=== PATIENT | female | born 1995 | race Hispanic/Latino ===

== ENCOUNTER 2020-05-04 10:00 | Emergency (ER) | payer OTHER ==
[~2020-05-04] VITALS: Ht 165.1 cm; Wt 141.2 kg
[2020-05-04] MEDS ORDERED: ONDANSETRON ODT8 MG PO (10:58)
[2020-05-04] MEDS ORDERED: LOMOTIL TABLET1 EACH PO (10:58)
[2020-05-04] MEDS ORDERED: PREDNISONE20 MG PO (10:58)
[2020-05-04] MEDS ORDERED: PROAIR HFA INH8.5 GM PO (10:58)
[2020-05-04] MEDS ORDERED: LEVAQUIN750 MG PO (10:58)
--- NOTE | 2020-05-04 10:58 | Emergency Department Note ---
History of Present Illnes History of Present Illness Chief Complaint: dry cough/wheezing History of Present Illness This is a 24 year old female. was doing well until 1 day ago then diarrhea, dry cough, wheezing. no sob Historian: Patient History limited by: condition of the patient Supply Aide Required: No Onset (how long ago): day(s) (1) Location: n/a Quality: n/a Radiation: Denies non-radiation Severity: mild Onset quality: gradual Duration (how long): day(s) (1) Timing of current episode: intermittent Progression: unchanged Chronicity: new Context: Denies recent illness, Denies recent surgery, Denies recent immobilization, Denies recent travel, Denies trauma/injury, Denies new medications, Denies hx of DVT/PE Relieving factors: none Exacerbating factors: none Associated symptoms: Reports cough Treatments prior to arrival: none Past Medical/Family History Physician Review I have reviewed the patient's past medical and family history. Any updates have been documented here. Past Medical History Recent Fever: No Clinical Suspicion of Infectio: No New/Unexplained Change in Ment: No Other Medical History: reactive airway disease Past Surgical History: None Social History Smoking Cessation: Never Smoker Counseling Performed: No Alcohol Use: Social Any Illegal Drug Use: No TB Exposure/Symptoms: No Physically hurt or threatened: No Family History Family history of heart diseas: No Other Any Pre-Existing Lines (PICC,: No Is patient up to date on immun: No Review of Systems Review of Systems Constitutional: Reports no symptoms EENTM: Reports no symptoms Cardiovascular: Reports no symptoms Respiratory: Reports as per HPI, Reports cough, Reports wheezing Gastrointestinal: Reports as per HPI, Reports diarrhea Genitourinary: Reports no symptoms Musculoskeletal: Reports no symptoms Integumentary: Reports no symptoms Neurological: Reports no symptoms Psychological: Reports no symptoms Endocrine: Reports no symptoms Hematological/Lymphatic: Reports no symptoms Review of other systems: All other systems negative Physical Exam Related Data Allergies: Coded Allergies: lamotrigine (Verified Allergy, Intermediate, rash/hives, 05/04/20) lithium (Verified Allergy, Intermediate, rash/hives, 05/04/20) Vital signs reviewed: Yes Physical Exam CONSTITUTIONAL Constitutional: Present well-developed, Present well-nourished HENT HENT: Present normocephalic, Present atraumatic, Present oropharynx clear/moist, Present nose normal HENT L/R: Present left ext ear normal, Present right ext ear normal EYES Eyes: Reports PERRL, Reports conjunctivae normal NECK Neck: Present ROM normal, Present supple PULMONARY Pulmonary: Present effort normal, Present other (+wheezing) CARDIOVASCULAR Cardiovascular: Present regular rhythm, Present heart sounds normal, Present capillary refill normal, Present normal rate GASTROINTESTINAL Abdominal: Present soft, Present nontender, Present bowel sounds normal GENITOURINARY Genitourinary: Present exam deferred SKIN Skin: Present warm, Present dry MUSCULOSKELETAL Musculoskeletal: Present ROM normal NEUROLOGICAL Neurological: Present alert, Present oriented x 3, Present no gross motor or sensory deficits PSYCHOLOGICAL Psychological: Present mood/affect normal, Present judgement normal Assessment & Plan Medical Decision Making MDM rad/bronchitis/diarrhea Assessment & Plan Final Impression: (1) Reactive airway disease (2) Acute bronchitis (3) Diarrhea Depart Disposition: HOME, SELF-group home Meds Active Scripts Prednisone (PREDNISONE) 20 Mg Tab, 60 MG PO DAILY, #18 TAB Prov:FLAKO ARELLANO 05/04/20 Albuterol Sulf* (PROAIR HFA INHALER*) 8.5 Gm Inh, 2 INH PO Q4HR PRN for COUGH, #1 INH prn cough, wheezing, shortness of breath. USE SPACER Prov:FLAKO ARELLANO 05/04/20 Levofloxacin (LEVAQUIN) 750 Mg Tablet, 750 MG PO DAILY, #10 TAB Prov:FLAKO ARELLANO 05/04/20 Diphenoxylate Hcl/Atropine (LOMOTIL TABLET) 1 Each Tablet, 2 TAB PO Q6HR PRN for DIARRHEA, #24 TAB Prov:FLAKO ARELLANO 05/04/20 Ondansetron (ONDANSETRON ODT) 8 Mg Tab.rapdis, 4 MG PO Q4HR PRN for NAUSEA AND VOMITING, #20 TAB 1 Refill Prov:FLAKO ARELLANO 05/04/20 FLAKO ARELLANO May 04, 2020 10:58
== END 2020-05-04 11:12 | disposition home or self-care (01) ==
LOC: FSED 10:00
DX: R05 Cough (principal); J20.9 Acute bronchitis, unspecified; J45.909 Unspecified asthma, uncomplicated; R19.7 Diarrhea, unspecified
CPT/HCPCS: 81003; 81025; 99283

== ENCOUNTER 2020-05-09 23:38 | Emergency (ER) | payer OTHER ==
[~2020-05-09] VITALS: Ht 165.1 cm; Wt 127.0 kg
[~2020-05-09 23:38] MED LIST: LEVAQUIN750 MG PO; LOMOTIL TABLET1 EACH PO; ONDANSETRON ODT8 MG PO; PREDNISONE20 MG PO; PROAIR HFA INH8.5 GM PO
--- NOTE | 2020-05-10 00:01 | Emergency Department Note ---
History of Present Illnes History of Present Illness Chief Complaint: Respiratory History of Present Illness This is a 24 year old female . Arrival Mode: Car Orthopaedic Nurse Required: No Onset (how long ago): minute(s) ([place], was sitting at home and felt sudden onset of non tearing chest pain, felt like all her extremities were going numb no sob no fever no chills no hx of DVT or PE, no leg pain or leg swelling no recent trips or travels, was seen in the ED 5 days ago has hx of anxiety and bipolar she is on no medications) Past Medical/Family History Physician Review I have reviewed the patient's past medical and family history. Any updates have been documented here. Past Medical History Recent Fever: No Clinical Suspicion of Infectio: No New/Unexplained Change in Ment: No Past Medical History: None, Anxiety (bipolar disorder) Other Medical History: reactive airway disease Past Surgical History: None Social History Smoking Cessation: Never Smoker Alcohol Use: None Any Illegal Drug Use: No Review of Systems Review of Systems Constitutional: Denies chills, Denies fever Cardiovascular: Reports chest pain Respiratory: Denies cough, Denies hemoptysis, Denies pain on inspiration, Denies dyspnea Psychological: Reports anxiety Review of other systems: All other systems negative Physical Exam Related Data Allergies: Coded Allergies: lamotrigine (Verified Allergy, Intermediate, rash/hives, 05/04/20) lithium (Verified Allergy, Intermediate, rash/hives, 05/04/20) Vital signs reviewed: Yes Physical Exam CONSTITUTIONAL Constitutional: Present well-developed, Present morbidly obese HENT HENT: Present normocephalic EYES Eyes: Reports conjunctivae normal NECK Neck: Present supple PULMONARY Pulmonary: Present breath sounds normal CARDIOVASCULAR Cardiovascular: Present regular rhythm GASTROINTESTINAL Abdominal: Present soft GENITOURINARY SKIN Skin: Present warm MUSCULOSKELETAL Musculoskeletal: Absent edema NEUROLOGICAL Neurological: Present alert, Present oriented x 3 PSYCHOLOGICAL Psychological: Present other (anxious) Results Laboratory Lab results reviewed: Yes Laboratory comments D Dimer 800 UPT neg CMP Normal except Glu 147 Imaging Imaging results reviewed: Yes Impressions EXAM: CT Chest WITH contrast (PE Protocol) INDICATION: Chest pain COMPARISON: None TECHNIQUE: Chest was scanned utilizing a multidetector helical scanner from the lung apex through the level of the diaphragm after administration of IV contrast. Thin section reconstructions were obtained with special concentration on the pulmonary arteries. Coronal and sagittal reformations were obtained. Pulmonary embolism protocol was performed. IV CONTRAST: 100 mL of Isovue 370 COMPLICATIONS: None RADIATION DOSE: Total DLP: 574 mGy*cm Estimated effective dose: (DLP x 0.014 x size factor) mSv CTDIvol has been reviewed. It is below the limits set by the Radiation Protocol Committee (RPC). Dose modulation, iterative reconstruction, and/or weight based adjustment of the mA/kV was utilized to reduce the radiation dose to as low as reasonably achievable. FINDINGS: LINES/ TUBES: None. LUNGS AND AIRWAYS: No filling defect is identified within the pulmonary arteries to the segmental level. Low lung volumes. The lungs are unremarkable. Airways are normal. PLEURA: The pleural spaces are clear. HEART AND MEDIASTINUM: The thyroid gland is normal. No mediastinal, hilar or axillary lymphadenopathy. Borderline cardiomegaly. The heart is normal in size. There is no pericardial effusion. Main pulmonary artery diameter 3 cm, upper limit of normal. Ascending aorta diameter 3.1 cm, within normal limits. UPPER ABDOMEN: Mild splenomegaly, measures up to 13.6 cm. The liver appears enlarged. BONES: The visualized bony thorax is within normal limits. SOFT TISSUES: Unremarkable. IMPRESSION: No pulmonary emboli. Borderline cardiomegaly. Low lung volumes. Borderline main pulmonary artery dilation can be seen with pulmonary hypertension, correlate for obstructive sleep apnea/obesity hypoventilation syndrome. Probable hepatomegaly, hepatic steatosis suspected. Mild splenic megaly can be due to portal hypertension. Signed by: Seamus Vasques DO on 05/10/2020 3:26 AM Dictated By: SEAMUS VASQUES DO [id number] Procedures 12 Lead ECG Interpretation ECG Interpretation : ECG: ECG 1 Orthopaedic Nurse: Interpreted by ED physician Date: May 10, 2020 Prior ECG tracings: reviewed Rhythm: sinus rhythm Rate: normal QRS axis: normal Conduction: incomplete RBBB ST segments normal: Yes T waves normal: Yes Clinical Impression: normal ECG Clinical Decision Tools PERC Pulmonary Embolism PERC Score for PE: PERC Score for PE Response (Comments) Value Patient > or = 50 yrs no 0 Heart rate > 100 no 0 SaO2 on room air < 95% no 0 Unilateral leg swelling no 0 Hisotry of DVT/PE no 0 Hemoptysis no 0 Recent surgery or trauma no 0 Hormone use yes 1 Total 1 Assessment & Plan Medical Decision Making MDM PE, Panic attack, GERD, Non Cardiac Chest pain, dissection, PTX, ACS Assessment & Plan Final Impression: (1) Chest pain (2) Panic attack (3) Cardiomegaly (4) Obstructive sleep apnea Depart Disposition: HOME, SELF-[facility] Meds Active Scripts Alprazolam (XANAX) 0.25 Mg Tablet, 0.25 MG PO TID PRN for ANXIETY for 5 Days, #15 Prov:NATY GOMEZ MD 05/10/20 Prednisone (PREDNISONE) 20 Mg Tab, 60 MG PO DAILY, #18 TAB Prov:FLAKO ARELLANO 05/04/20 Albuterol Sulf* (PROAIR HFA INHALER*) 8.5 Gm Inh, 2 INH PO Q4HR PRN for COUGH, #1 INH prn cough, wheezing, shortness of breath. USE SPACER Prov:FLAKO ARELLANO 05/04/20 Levofloxacin (LEVAQUIN) 750 Mg Tablet, 750 MG PO DAILY, #10 TAB Prov:FLAKO ARELLANO 05/04/20 Diphenoxylate Hcl/Atropine (LOMOTIL TABLET) 1 Each Tablet, 2 TAB PO Q6HR PRN for DIARRHEA, #24 TAB Prov:FLAKO ARELLANO 05/04/20 Ondansetron (ONDANSETRON ODT) 8 Mg Tab.rapdis, 4 MG PO Q4HR PRN for NAUSEA AND VOMITING, #20 TAB 1 Refill Prov:FLAKO ARELLANO 05/04/20 NATY GOMEZ MD May 10, 2020 00:01
[2020-05-10] MEDS ORDERED: XANAX0.25 MG PO (00:06)
[2020-05-10] MEDS ORDERED: SODIUM CHLORIDE 0.9% 50ML 50 ML ONE (01:31)
[2020-05-10] MEDS ORDERED: IOPAMIDOL 370 MG/ML 200 ML INFUS..BTL INJ ONE (01:33)
--- NOTE | 2020-05-10 02:26 | Diagnostic Imaging Report ---
EXAMINATION: CXR 2 VIEW - HOPD INDICATION: Chest pain COMPARISON: None FINDINGS: TUBES and LINES: None. LUNGS: Normal lung volumes. Lungs are clear. No consolidations. PLEURA: No pleural effusion or pneumothorax. HEART AND MEDIASTINUM: The cardiomediastinal silhouette is unremarkable. BONES AND SOFT TISSUES: No acute osseous lesion. Soft tissues are unremarkable. UPPER ABDOMEN: No free air under the diaphragm. IMPRESSION: No acute thoracic radiographic abnormality. Signed by: Corky Vasques DO on 05/10/2020 2:22 AM
--- NOTE | 2020-05-10 02:43 | NUR ---
AFTER 2 UNSUCCESSFUL ATTEMPTS TO EST. IV TO L-AC FOR CT PE PROTOCOL. MD USING US MACHINE ATTEMPTED 6TIMES AND ON 7TH TIME WAS ABLE TO EST. TO R-AC WITH 18G.
--- NOTE | 2020-05-10 03:15 | NUR ---
PT UP TO RESTROOM. NO COMPLAINTS AT THIS TIME
--- NOTE | 2020-05-10 03:29 | Diagnostic Imaging Report ---
EXAM: CT Chest WITH contrast (PE Protocol) INDICATION: Chest pain COMPARISON: None TECHNIQUE: Chest was scanned utilizing a multidetector helical scanner from the lung apex through the level of the diaphragm after administration of IV contrast. Thin section reconstructions were obtained with special concentration on the pulmonary arteries. Coronal and sagittal reformations were obtained. Pulmonary embolism protocol was performed. IV CONTRAST: 100 mL of Isovue 370 COMPLICATIONS: None RADIATION DOSE: Total DLP: 574 mGy*cm Estimated effective dose: (DLP x 0.014 x size factor) mSv CTDIvol has been reviewed. It is below the limits set by the Radiation Protocol Committee (RPC). Dose modulation, iterative reconstruction, and/or weight based adjustment of the mA/kV was utilized to reduce the radiation dose to as low as reasonably achievable. FINDINGS: LINES/ TUBES: None. LUNGS AND AIRWAYS: No filling defect is identified within the pulmonary arteries to the segmental level. Low lung volumes. The lungs are unremarkable. Airways are normal. PLEURA: The pleural spaces are clear. HEART AND MEDIASTINUM: The thyroid gland is normal. No mediastinal, hilar or axillary lymphadenopathy. Borderline cardiomegaly. The heart is normal in size. There is no pericardial effusion. Main pulmonary artery diameter 3 cm, upper limit of normal. Ascending aorta diameter 3.1 cm, within normal limits. UPPER ABDOMEN: Mild splenomegaly, measures up to 13.6 cm. The liver appears enlarged. BONES: The visualized bony thorax is within normal limits. SOFT TISSUES: Unremarkable. IMPRESSION: No pulmonary emboli. Borderline cardiomegaly. Low lung volumes. Borderline main pulmonary artery dilation can be seen with pulmonary hypertension, correlate for obstructive sleep apnea/obesity hypoventilation syndrome. Probable hepatomegaly, hepatic steatosis suspected. Mild splenic megaly can be due to portal hypertension. Signed by: Corky Vasques DO on 05/10/2020 3:26 AM
[2020-05-10 03:45] VITALS: BP 125/76
== END 2020-05-10 03:45 | disposition home or self-care (01) ==
LOC: FSED 23:38
DX: R07.9 Chest pain, unspecified (principal); I51.7 Cardiomegaly; F41.0 Panic disorder [episodic paroxysmal anxiety]; G47.33 Obstructive sleep apnea (adult) (pediatric)
CPT/HCPCS: 71046; 71260; 80053; 81025; 85025; 85379; 93005; 99284; Q9967